=== PATIENT | male | born 1995 | race Caucasian/White ===

== ENCOUNTER → 2025-02-11 | Outpatient (BNVA) | payer BC, SELFPAY | END | disposition home or self-care (01) | PROVIDERS: PCP Family Medicine; Referring Provider Family Medicine; Visit Provider Urology | DX: Z30.2 Encounter for sterilization (principal); N40.0 Benign prostatic hyperplasia without lower urinary tract symptoms | CPT/HCPCS: 81003; 99203; G0463 ==

== ENCOUNTER 2025-02-17 09:30 | Day surgery (SDC) | payer BC, SELFPAY ==
[2025-02-16 14:42] VITALS: BMI 40.0
[2025-02-17] VITALS (9 sets, daily range): BP systolic 117–153; BP diastolic 84–100; PULSE 84–113; RESP 14–20; TEMP 36.3–37.2; O2SAT 95–99; BMI 40.1
--- NOTE | 2025-02-17 12:57 | SUR.PHASEI ---
pt received from OR in recovery bay 1. pt asleep but responds to voice, breathing unlabored on oxymask 6l. v/s stable. pt dressing to scrotal area cdi. report received from Sohan HOLLEY and Da GALVAN.
--- NOTE | 2025-02-17 13:12 | ESOP_ITS ---
Date of Procedure 02/17/25 Pre Op Diagnosis Elective sterilization Post Op Diagnosis Same Procedure Bilateral vasectomy Findings Thickened cord structure difficult to dissection Procedure Description This is a 29-year-old gentleman he is seen in urology office for elective sterilization procedure and complications were discussed with patient in great detail. Literature regarding bilateral vasectomy was provided to the patient he understood very well there is no warranty for permanent sterilization. Patient was appropriately identified by surgeon and operating room staff site scope and indications of the procedure were reconfirmed with the patient Procedure patient was brought to the operating room in a satisfactory condition after appropriate premedication was put on the operating table in a supine position general anesthesia was given uneventfully parts were prepped and draped in a usual sterile fashion. Next the right vas deferens was palpated between 2 fingers and a thumb 2% lidocaine with quarter percent Marcaine was instilled appropriately vertical skin incision was made the cord structure was very thickened with the difficult dissection proper hemostasis was secured. Next the vas deferens was brought into the incision it was from its various fascial coverings between 2 silver clips centimeter of the vas deferens was excised. The lumen of the vas deferens was diathermized with coagulation diathermy distal end of the vas deferens was buried between various fascial layers. Skin was approximated with 3-0 chromic. Similar procedure was repeated on the opposite side similarly the other side revealed thickened cord structures with difficult dissection another extra skin incision was made on the left side to grab the vas deferens. Next this sterile dressings were applied. Pressure bandage was given Patient having tolerated the procedure well and was sent to recovery room in a satisfactory condition to be discharged home with full postoperative instructions were verbally as well as in writing to be followed in urology office in 6 weeks' time he will also see me in my office tomorrow day eason at 9 AM Patient disposition I discussed and explained to the that it was very difficult to dissection I have send the vas deferens to the pathology department and he will have a semen analysis in 3 months until semen analysis is done and shows no sperm in the semen he has to continue using contraceptions. . Pathology / specimen Other (Right and left vas deferens) Estimated Blood Loss 1.5 Condition Stable Disposition PACU Surgeon Melanie Marcelo MD Surgical Staff Operation Date: 02/17/25 11:30 Case Staff Anesthesiologist: Antonino Montemayor
--- NOTE | 2025-02-17 13:15 | SUR.PHASEI ---
pt able to tolerate oral fluids without difficulty swallowing or nausea/vomiting.
--- NOTE | 2025-02-17 14:00 | SUR.PHASEII ---
pt awake and alert, breathing unlabored on room air. v/s stable. pt dressing scrotal area cdi. pt able to amubalte to wheelchair with steady gait. d/c instructions given with Trasha in room, all questions answered. pt d/c via wheelchair with all belongings.
== END 2025-02-17 14:00 | disposition home or self-care (01) ==
PROVIDERS: PCP Family Medicine; Referring Provider Urology; Visit Provider Urology
PROC: (CPT 55250; principal; 2025-02-17 11:15)
DX: Z30.2 Encounter for sterilization (principal)
CPT/HCPCS: 55250; A4217; A4649; J0131; J2250; J2405; J2704; J2765; J3010; J3490; A9270; J1596

== ENCOUNTER → 2025-07-20 | Outpatient (BNVA) | payer BC, SELFPAY | END | disposition home or self-care (01) | PROVIDERS: PCP Family Medicine; Referring Provider Family Medicine; Visit Provider Urology | DX: Z98.52 Vasectomy status (principal); E66.9 Obesity, unspecified; Z71.3 Dietary counseling and surveillance; Z68.41 Body mass index [BMI] 40.0-44.9, adult | CPT/HCPCS: 81003; 99212; G0463 ==

== ENCOUNTER → 2025-07-20 | Outpatient (CLI) | payer BC, SELFPAY ==
[2025-07-20 11:27] LABS: Post Vasectomy Sperm Presence 2+ Spermatozoa Seen (No Sperm)
== END | disposition home or self-care (01) ==
LOC: SLDO 10:22
PROVIDERS: Referring Provider Urology; Visit Provider Urology
DX: Z98.52 Vasectomy status (principal)
CPT/HCPCS: 89321

== ENCOUNTER → 2025-08-09 | Outpatient (CLI) | payer BC, SELFPAY ==
--- NOTE | 2025-08-26 20:08 | ESPR_ITS ---
RE: LESLIE TALBERT : 1995 DATE OF SERVICE: 08/26/2025 Note, this is a 30-year-old gentleman. He is status post bilateral vasectomy. This patient had a semen analysis done and this revealed presence of spermatozoa and I have called him twice, left a message on his voicemail advising him that he still has to continue using contraceptions until semen shows no sperm in the semen analysis. Patient has not returned my call, I called him twice. DT: 09:03:00 TT: 20:06:00 Ref: [id number] - TID: [id number]
== END | disposition home or self-care (01) ==
PROVIDERS: Referring Provider Urology; Visit Provider Urology
DX: Z98.52 Vasectomy status (principal); Z30.8 Encounter for other contraceptive management
CPT/HCPCS: 89321